=== PATIENT | female | born 2005 | race Caucasian/White ===

== ENCOUNTER 2023-12-03 10:13 | Emergency (ER) | payer OTHER | END 2023-12-03 12:07 | disposition home or self-care (01) | LOC: MADERS 10:13 | DX: M79.605 Pain in left leg (principal) | CPT/HCPCS: 36415; 85379; 99284 ==

== ENCOUNTER 2024-07-03 23:11 | Emergency (ER) | payer OTHER ==
[2024-07-03 23:41] LABS: Pregu Control Background? CLEAR/WHITE (CLR/WHITE); Pregu Control Bar Appear? YES (CONTROL BAR); Specific Gravity 1.025 (1.002-1.036)
[2024-07-03 23:44] LABS: Pregnancy Test - Urine (BHCG) Negative (Negative)
[2024-07-03] MEDS ORDERED: Naproxen 500 MG TAB ONE (23:52)
[2024-07-03] MEDS ORDERED: Acetaminophen 500 MG TAB ONE (23:52)
[2024-07-03] MEDS ORDERED: Lidocaine 4% Patch ONE (23:52)
== END 2024-07-04 00:11 | disposition home or self-care (01) ==
LOC: MADERS 23:11
DX: G89.29 Other chronic pain (principal); M25.551 Pain in right hip
CPT/HCPCS: 81025; 99283

== ENCOUNTER 2024-07-19 17:21 | Emergency (ER) | payer OTHER ==
[2024-07-19 18:11] LABS: Calcium 9.7 mg/dL (7.8-10.44); Chloride 106 mmol/L (98-107); Potassium 3.9 mmol/L (3.5-5.1); Sodium 139 mmol/L (136-145)
[2024-07-19 18:12] LABS: #Basophils 0.1 thou/uL (0.0-0.2); #Eosinophils 0.1 thou/uL (0.0-0.7); #Lymphocytes 2.6 thou/uL (1.20-3.40); #Monocytes 0.8 thou/uL (0.11-0.59); #Neutrophils 5.7 thou/uL (1.40-6.50); %Basophils 0.8 % (0.0-1.0); %Eosinophils 1.4 % (0.0-10.0); %Lymphocytes 28.1 % (28.0-48.0); %Monocytes 8.9 % (0.0-4.0); %Neutrophils 60.9 % (31.0-61.0); Hematocrit 41.2 % (36.0-47.0); Hemoglobin 13.1 g/dL (12.0-16.0); Mean Corpuscular HGB CONC 31.9 g/dL (32.0-36.0); Mean Corpuscular Hemoglobin 28.8 pg (25.0-35.0); Mean Corpuscular Volume 90.1 fl (78.0-98.0); Platelet Count 355 10x3/uL (130-400); RBC Distribution Width 12.1 % (11.5-14.5); Red Blood Cell (RBC) Count 4.57 mill/uL (4.00-5.20); White Blood Cell (WBC) Count 9.4 10x3/uL (4.8-10.8)
[2024-07-19 18:21] LABS: Troponin I 0.011 ng/mL (< 0.028)
[2024-07-19 18:56] LABS: Pregnancy Test - Urine (BHCG) Negative (Negative); Pregu Control Background? CLEAR/WHITE (CLR/WHITE); Pregu Control Bar Appear? YES (CONTROL BAR); Specific Gravity 1.022 (1.002-1.036)
[2024-07-19 23:32] LABS: ALT (SGPT) 25 U/L (Less than 34); AST (SGOT) 24 U/L (11-34); Albumin 3.9 g/dL (3.1-4.5); Alkaline Phosphatase 65 U/L (40-100); Anion Gap 16 mmol/L (10-20); BUN (Urea Nitrogen) 15 mg/dL (7.0-18.7); Bilirubin, Total 0.4 mg/dL (0.3-1.2); Calc. Creatinine Clearance 0 mL/min (70-130); Carbon Dioxide 20 mmol/L (22-29); Estimated GFR 98; Globulin 3.3 g/dL (2.4-3.5); Glucose 101 mg/dL (70-105); Lipase 32 U/L (8-78); Protein, Total 7.2 g/dL (6.0-8.3)
== END 2024-07-19 19:55 | disposition home or self-care (01) ==
LOC: MADERS 17:21
DX: F41.0 Panic disorder [episodic paroxysmal anxiety] (principal); G43.909 Migraine, unspecified, not intractable, without status migrainosus
CPT/HCPCS: 36415; 71046; 80053; 81025; 83690; 84484; 85025; 85379; 93005